=== PATIENT | male | born 1965 | race Hispanic/Latino ===

== ENCOUNTER 2016-11-06 11:31 | Emergency (ER) | payer SELFPAY ==
[2016-11-06] MEDS ORDERED: Ibuprofen 800 MG TAB ONE (13:11)
[2016-11-06] MEDS ORDERED: HYDROcodone/Acetaminophen 10/325 mg Tablet ONE (13:11)
--- NOTE | 2016-11-06 17:10 | RAD ---
RIGHT KNEE FOUR VIEWS 11/06/16 No fracture, dislocation, or joint space narrowing was seen. There is the beginnings of some minor b jarrell spurring. IMPRESSION: No acute findings. POS: HOME
--- NOTE | 2016-11-06 17:11 | RAD ---
RIGHT ANKLE THREE VIEWS: 11/06/16 There is substantial swelling, especially laterally. No acute fracture was demonstrated. There is so me bony spurring on the anterior aspect of the ankle joint. A calcaneal spur was noted. IMPRESSION: Soft tissue swelling without acute fracture. POS: HOME
== END 2016-11-06 13:15 | disposition home or self-care (01) ==
LOC: BURERS 11:31
DX: S93.431A Sprain of tibiofibular ligament of right ankle, initial encounter (principal); S83.421A Sprain of lateral collateral ligament of right knee, initial encounter; X50.1XXA Overexertion from prolonged static or awkward postures, initial encounter
CPT/HCPCS: 99283

== ENCOUNTER 2017-03-10 11:46 | Emergency (ER) | payer SELFPAY ==
[~2017-03-10 11:46] MED LIST: Iopamidol 370 76% 100 ML VIAL ONE
[2017-03-10] MEDS ORDERED: Ketorolac Tromethamine 30 MG/ML VIAL ONE (12:14)
[2017-03-10 12:16] LABS: #Basophils 0.1 thou/uL (0.0-0.2); #Monocytes 1.1 thou/uL (0.11-0.59); #Neutrophils 10.9 thou/uL (1.40-6.50); %Basophils 0.9 % (0.0-1.0); %Eosinophils 0.3 % (0.0-10.0); %Lymphocytes 13.9 % (21.0-51.0); %Neutrophils 76.8 % (42.0-75.0); Hemoglobin 15.8 g/dL (14.0-18.0); Mean Corpuscular HGB CONC 33.6 g/dL (32.0-36.0); Mean Corpuscular Hemoglobin 28.8 pg (27.0-31.0); Mean Corpuscular Volume 85.6 fl (80.0-94.0); Mean Platelet Volume 7.4 fL (7.4-10.4); Platelet Count 302 thou/uL (130-400); RBC Distribution Width 12.6 % (11.5-14.5); White Blood Cell (WBC) Count 14.1 thou/uL (4.8-10.8)
[2017-03-10 12:19] LABS: Bilirubin Negative (Negative); Blood, Urine Negative (Negative); Clarity Clear (Clear); Glucose, Urine (Dipstick) Negative (Negative); Leukocyte Negative (Negative); Nitrite Negative (Negative); Protein, Urine (Dipstick) Negative (Neg-Trace)
[2017-03-10 12:34] LABS: ALT (SGPT) 16 U/L (8-55); AST (SGOT) 12 U/L (5-34); Albumin 3.8 g/dL (3.5-5.0); Alkaline Phosphatase 74 U/L (40-150); Anion Gap 14 mmol/L (10-20); BUN (Urea Nitrogen) 14 mg/dL (8.9-20.6); Bilirubin, Total 0.7 mg/dL (0.2-1.2); Calc. Creatinine Clearance 0 mL/min (70-130); Carbon Dioxide 18 mmol/L (22-29); Chloride 111 mmol/L (98-107); Estimated GFR-MDRD Greater than 90; Globulin 3.8 g/dL (2.4-3.5); Glucose 114 mg/dL (70-105); Potassium 3.7 mmol/L (3.5-5.1); Protein, Total 7.6 g/dL (6.0-8.3); Sodium 139 mmol/L (136-145)
[2017-03-10] MEDS ORDERED: Ciprofloxacin Lactate/D5W 400 mg/200 ml Premix ONE (13:21)
[2017-03-10] MEDS ORDERED: traMADol HCl 50 MG TAB ONE (13:21)
--- NOTE | 2017-03-10 13:36 | CT ---
CT ABDOMEN AND PELVIS WITH CONTRAST: DATE: 03/10/17. COMPARISON: Comparison is made with the prior study of 07/30/16. FINDINGS: Axial slices were acquired after giving IV contrast. Oral contrast was withheld by request. Buckner l reconstructions were then done. The major finding on this study is some swelling of the sigmoid colon with a large amount of pericol onic stranding. The findings are most consistent with diverticulitis. I do not see a focal abscess . On slice 77 of the axial slices, there was a rounded fluid density behind the sigmoid colon, but on the coronal slices this appears to be fluid in bowel. No definite free air or free fluid was see n. Elsewhere, the abdomen and pelvis were unremarkable. The lung bases are clear. The liver, spleen, pancreas, adrenal glands, kidneys, gallbladder, and abdominal aorta were all unremarkable in appeara nce. The patient has a retroaortic left renal vein. Aside from the findings of diverticulitis in the pelvis/sigmoid region, the remainder of the bowel w as unremarkable in appearance. No free air was seen elsewhere. CT of the pelvis was remarkable for the inflammatory changes. No pelvic masses were seen. IMPRESSION: Findings most consistent with moderately severe diverticulitis with extensive pericolonic inflammato ry changes. No definite abscess seen. The location is similar to the July 2016 episode. Findings discussed with Dr. Oden at 1248 on 03/10/17. CODE CR POS: HOME
[2017-03-10] MEDS ORDERED: Magnesium Citrate 300 ML BOT ONE (14:05)
[2017-03-10] MEDS ORDERED: metroNIDAZOLE 500 MG/100 ML BAG ONE (14:24)
== END 2017-03-10 15:27 | disposition home or self-care (01) ==
LOC: BURERS 11:46
DX: K57.32 Diverticulitis of large intestine without perforation or abscess without bleeding (principal); K59.00 Constipation, unspecified
CPT/HCPCS: 74177; 80053; 81003; 83605; 85025; 96365; 96367; 96375; A4216; J0744; J1885; J2270

== ENCOUNTER 2018-01-28 10:29 | Emergency (ER) | payer SELFPAY ==
[2018-01-28] MEDS ORDERED: Ondansetron HCl/PF 4 MG/2 ML Vial ONE (10:42)
[2018-01-28] MEDS ORDERED: Fentanyl 100 MCG/2 ML VIAL ONE ×2 (10:42→11:58)
[2018-01-28 10:52] LABS: #Basophils 0.1 thou/uL (0.0-0.2); #Eosinphils 0.2 thou/uL (0.0-0.7); #Lymphocytes 1.9 thou/uL (1.20-3.40); #Monocytes 0.8 thou/uL (0.11-0.59); #Neutrophils 5.1 thou/uL (1.40-6.50); %Basophils 0.9 % (0.0-1.0); %Lymphocytes 23.6 % (21.0-51.0); %Monocytes 9.6 % (0.0-10.0); %Neutrophils 63.9 % (42.0-75.0); Hemoglobin 17.9 g/dL (14.0-18.0); Mean Corpuscular HGB CONC 34.3 g/dL (32.0-36.0); Mean Corpuscular Volume 81.6 fl (80.0-94.0); Mean Platelet Volume 7.1 fL (7.4-10.4); Platelet Count 270 thou/uL (130-400); RBC Distribution Width 12.6 % (11.5-14.5); Red Blood Cell (RBC) Count 6.39 mill/uL (4.70-6.10); White Blood Cell (WBC) Count 7.9 thou/uL (4.8-10.8)
[2018-01-28 11:10] LABS: ALT (SGPT) 37 U/L (8-55); AST (SGOT) 25 U/L (5-34); Albumin 4.4 g/dL (3.5-5.0); Alkaline Phosphatase 71 U/L (40-150); Anion Gap 12 mmol/L (10-20); BUN (Urea Nitrogen) 11 mg/dL (8.4-25.7); Bilirubin, Total 0.6 mg/dL (0.2-1.2); Calc. Creatinine Clearance 0 mL/min (70-130); Calcium 9.4 mg/dL (7.8-10.44); Carbon Dioxide 28 mmol/L (22-29); Chloride 106 mmol/L (98-107); Estimated GFR-MDRD Greater than 90; Globulin 3.3 g/dL (2.4-3.5); Glucose 110 mg/dL (70-105); Potassium 4.3 mmol/L (3.5-5.1); Protein, Total 7.7 g/dL (6.0-8.3); Sodium 142 mmol/L (136-145)
[2018-01-28] MEDS ORDERED: Piperacillin/Tazobactam 3.375 GM VIAL ONE (11:42)
[2018-01-28] MEDS ORDERED: Sodium Chloride 0.9% 100 ML ONE (11:42)
[2018-01-28 12:22] LABS: Clarity Clear (Clear)
[2018-01-28 12:23] LABS: Bilirubin Negative (Negative); Blood, Urine Negative (Negative); Glucose, Urine (Dipstick) Negative (Negative); Leukocyte Negative (Negative); Nitrite Negative (Negative); Protein, Urine (Dipstick) Negative (Neg-Trace); Specific Gravity, Urine 1.015 (1.005-1.030); pH, Urine 5.5 (5.0-9.0)
--- NOTE | 2018-01-28 18:39 | CT ---
CT ABDOMEN AND PELVIS WITH CONTRAST 01/28/[address] of the abdomen and pelvis was performed for evaluation of abdominal pain. Axial slices were acquired after giving IV contrast. Oral contrast was withheld by request. Comparison is made with the prior study dated 03/10/17. The lung bases are clear. The liver was unremarkable except for an area of contrast blush in the medi al part of the right lobe near the gallbladder. This is likely either an area of fatty sparring or a small hemangioma that is filled in with contrast. There may be some generalized fatty infiltration of the liver elsewhere. The spleen, pancreas, gallbladder, and abdominal aorta appeared normal. The rig ht adrenal gland appears normal. The left adrenal gland has a small 1.5 cm mass in it. I looked back at a 2012 CT from [facility] where this mass was measured at about 1.1 cm in size. Thus it h as changed in size only minimally over this six year period. The major finding on this study is a little bit of streaking around the sigmoid colon consistent with mild diverticulitis. No abscess or significant free fluid was seen. Diverticula are scattered elsewh ere throughout the colon. No free air was noted. CT of the pelvis was mainly remarkable for the diverticulitis. No pelvic masses were detected. IMPRESSION: 1. Findings consistent with mild sigmoid diverticulitis. 2. Small 1.5 cm left adrenal mass, compares with a size measurement of 1.1 cm six years ago, so more likely could be benign than not. POS: HOME
== END 2018-01-28 12:43 | disposition home or self-care (01) ==
LOC: BURERS 10:29
DX: K57.92 Diverticulitis of intestine, part unspecified, without perforation or abscess without bleeding (principal)
CPT/HCPCS: 74177; 80053; 81003; 85025; 94760; 96361; 96365; 96375; 96376; A4216; J2405; J2543; J3010; J7050

== ENCOUNTER 2018-03-02 08:27 | Emergency (ER) | payer SELFPAY ==
[2018-03-02] MEDS ORDERED: Ketorolac Tromethamine 30 MG/ML VIAL ONE (08:39)
[2018-03-02] MEDS ORDERED: Ondansetron HCl/PF 4 MG/2 ML Vial ONE (08:39)
[2018-03-02 08:46] LABS: #Basophils 0.1 thou/uL (0.0-0.2); #Eosinphils 0.2 thou/uL (0.0-0.7); #Lymphocytes 2.1 thou/uL (1.20-3.40); #Monocytes 0.8 thou/uL (0.11-0.59); #Neutrophils 5.4 thou/uL (1.40-6.50); %Basophils 1.1 % (0.0-1.0); %Eosinophils 2.3 % (0.0-10.0); %Lymphocytes 24.8 % (21.0-51.0); %Monocytes 9.6 % (0.0-10.0); %Neutrophils 62.3 % (42.0-75.0); Hemoglobin 16.7 g/dL (14.0-18.0); Mean Corpuscular HGB CONC 34.5 g/dL (32.0-36.0); Mean Corpuscular Volume 81.1 fL (78.0-98.0); Mean Platelet Volume 7.4 fL (7.4-10.4); Platelet Count 244 thou/uL (130-400); RBC Distribution Width 12.3 % (11.5-14.5); Red Blood Cell (RBC) Count 5.97 mill/uL (4.70-6.10); White Blood Cell (WBC) Count 8.6 thou/uL (4.8-10.8)
[2018-03-02 08:48] LABS: MDiff Complete? YES
[2018-03-02 08:49] LABS: Manual Diff?? YES
[2018-03-02] MEDS ORDERED: Iopamidol 370 76% 100 ML VIAL ONE (09:00)
[2018-03-02 09:03] LABS: ALT (SGPT) 29 U/L (8-55); AST (SGOT) 17 U/L (5-34); Alkaline Phosphatase 85 U/L (40-150); Anion Gap 14 mmol/L (10-20); BUN (Urea Nitrogen) 12 mg/dL (8.4-25.7); Bilirubin, Total 0.3 mg/dL (0.2-1.2); Calc. Creatinine Clearance 0 mL/min (70-130); Calcium 8.9 mg/dL (7.8-10.44); Carbon Dioxide 23 mmol/L (22-29); Chloride 109 mmol/L (98-107); Estimated GFR-MDRD Greater than 90; Glucose 114 mg/dL (70-105); Lipase 39 U/L (8-78); Potassium 4.5 mmol/L (3.5-5.1); Sodium 141 mmol/L (136-145)
[2018-03-02 09:04] LABS: CKMB 1.1 ng/mL (0-6.6); Troponin I Less than 0.010 ng/mL (< 0.028)
[2018-03-02 09:40] LABS: Clarity Clear (Clear); Specific Gravity, Urine 1.015 (1.005-1.030); pH, Urine 5.5 (5.0-9.0)
[2018-03-02 09:41] LABS: Bilirubin Negative (Negative); Blood, Urine Negative (Negative); Glucose, Urine (Dipstick) Negative (Negative); Leukocyte Negative (Negative); Nitrite Negative (Negative); Protein, Urine (Dipstick) Negative (Neg-Trace); Urobilinogen 0.2 mg/dL (0.2-1.0)
[2018-03-02] MEDS ORDERED: Morphine 4 MG/ML Carpuject ONE (10:02)
--- NOTE | 2018-03-02 22:14 | CT ---
PRELIMINARY REPORT/[facility]/EMERGENTY AFTER-HOURS PROCEDURE CT Abdomen and Pelvis With Intravenous Contrast EXAM DATE/TIME: 03/02/2018 9:19 AM CLINICAL HISTORY: 52 years old, male; Pain; Abdominal pain; Other: Ruq; Patient HX: Ruq abd. Pain/n-v TECHNIQUE: Axial computed tomography images of the abdomen and pelvis with intravenous contrast. All CT scans at this facility use at least one of these dose optimization techniques: automated exposure control; mA and/or kV adjustment per patient size (includes targeted exams where dose is matched to clinical ind ication); or iterative reconstruction. Coronal and sagittal reformatted images were created and reviewed. CONTRAST: 95 ml of ISOVUE administered intravenously. COMPARISON: No relevant prior studies available. FINDINGS: Lower thorax: No acute findings. ABDOMEN: Liver: Normal. No mass. Gallbladder and bile ducts: Normal. No calcified stones. No ductal dilation. Pancreas: Normal. No ductal dilation. Spleen: Normal. No splenomegaly. Adrenals: There is an indeterminate 13 mm left adrenal nodule that demonstrates density 24 Hounsfield units. Kidneys and ureters: There are nonobstructing left renal calcifications. The kidneys are normal. Ther e is nonobstructing left nephrolithiasis. Stomach and bowel: There is a moderate burden of descending and sigmoid colonic diverticulosis withou t evidence of acute inflammation. There is segmental thickening of the sigmoid colon which may be spa sm or fibrotic change. There is suggestion of a colon to colon fistula involving the mid and distal s igmoid segments on axial image 79 of series 2. Appendix: The appendix is surgically absent. PELVIS: Bladder: Unremarkable as visualized. Reproductive: The prostate gland demonstrates nonspecific parenchymal calcification. ABDOMEN and PELVIS: Intraperitoneal space: Normal. No free air. No significant fluid collection. Bones/joints: No acute fracture. No dislocation. Soft tissues: Unremarkable. Vasculature: Normal. No abdominal aortic aneurysm. Lymph nodes: Normal. No enlarged lymph nodes. IMPRESSION: 1. There is an indeterminate 13 mm left adrenal nodule that demonstrates density 24 Hounsfield units. Recommend follow-up abdominal CT or MR in 12 months. Alternatively, if there is a history of maligna ncy, consider further evaluation with PET, unenhanced abdominal CT or MR. 2. There is no acute intra-abdominal process. 3. There is a moderate burden of descending and sigmoid colonic diverticulosis without evidence of ac otoe-[place] inflammation. There is segmental thickening of the sigmoid colon which may be spasm or fibrotic c hange. There is suggestion of a colon to colon fistula involving the mid and distal sigmoid segments on axial image 79 of series 2. 4. There is nonobstructing left nephrolithiasis. Thank you for allowing us to participate in the care of your patient. Dictated and Authenticated by: Kerwin Miller DO 03/02/2018 10:53 AM Central Time ([place] & [place]) CT ABDOMEN AND PELVIS WITH CONTRAST: Date: 03-02-18 Technique: Spiral CT of the abdomen and pelvis was performed for evaluation of right upper quadrant p ain with nausea and vomiting. Axial slices were acquired then coronal and sagittal reconstructions we re done. FINDINGS: The lung bases are clear. There is a minor amount of subsegmental atelectasis in the lung bases. The liver, spleen, pancreas, gallbladder, and abdominal aorta all showed no acute findings. A few nonobst ructing calculi are seen in the left kidney. There is a 1.3 cm nodule in the left adrenal gland of in determinate significance. The average CT values are in the low 20s. This is indeterminate for an shalom rodrigo without further scans. One should probably consider follow up within 12 months unless there are o ther diseases present that make further work up sooner necessary. There is some mild thickening of the descending colon with no pericolonic stranding. Diverticulosis i s present throughout but there are no convincing signs of diverticulitis. No mesenteric adenopathy is seen. On one of the slices through the pelvis there is a question of a fistula between the mid and d istal sigmoid colon but the finding is indefinite. There are no inflammatory changes around this area . IMPRESSION: 1. No findings to explain the patient's pain. 2. Nonobstructing left renal calculi. 3. Diverticulosis. Equivocal mild thickening of the descending colon without inflammatory stranding a round it. 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 Report in agreement with preliminary report by [facility]. POS: HOME
== END 2018-03-02 11:17 | disposition short-term general hospital (02) ==
LOC: BURERS 08:27
DX: K63.2 Fistula of intestine (principal); F17.210 Nicotine dependence, cigarettes, uncomplicated; Z79.899 Other long term (current) drug therapy
CPT/HCPCS: 74177; 80053; 81003; 82553; 83690; 84484; 85025; 93005; 96374; 96375; A4216; J1885; J2270; J2405

== ENCOUNTER 2018-03-13 07:50 | Emergency (ER) | payer SELFPAY | END 2018-03-13 08:28 | disposition home or self-care (01) | LOC: BURERS 07:50 | DX: T81.31XA Disruption of external operation (surgical) wound, not elsewhere classified, initial encounter (principal) | CPT/HCPCS: 12020 ==

== ENCOUNTER 2019-05-14 15:21 | Emergency (ER) | payer OTHER, SELFPAY ==
[2019-05-14] MEDS ORDERED: Ketorolac Tromethamine 60 MG/2 ML VIAL ONE (15:30)
[2019-05-14] MEDS ORDERED: HYDROcodone/Acetaminophen 5/325 mg Tablet ONE (15:30)
--- NOTE | 2019-05-14 17:56 | RAD ---
RIGHT KNEE FOUR VIEWS: 05/14/19 A sizable joint effusion is present, but I do not appreciate a fracture. The joint surfaces seem smoo th and the joint space is normal in with. There is some minor irregularity along the articular surfac es of the patella. IMPRESSION: Joint effusion without obvious fracture. The possibility of an internal derangement is raised. MRI wo uld be more sensitive at detecting this, as well as ruling out any subtle bony injuries. Code T POS: HOME
== END 2019-05-14 16:11 | disposition home or self-care (01) ==
LOC: BURERS 15:21
DX: M25.561 Pain in right knee (principal); X50.1XXA Overexertion from prolonged static or awkward postures, initial encounter
CPT/HCPCS: 96372; J1885

== ENCOUNTER 2020-04-07 18:58 | Emergency (ER) | payer OTHER ==
[2020-04-07 19:41] LABS: Hemoglobin 15.8 g/dL (14.0-18.0); Mean Corpuscular HGB CONC 29.9 g/dL (32.0-36.0); Mean Corpuscular Hemoglobin 27.4 pg (27.0-31.0); Mean Corpuscular Volume 91.6 fL (78.0-98.0); Mean Platelet Volume 7.6 fL (7.4-10.4); Platelet Count 186 thou/uL (130-400); Red Blood Cell (RBC) Count 5.78 mill/uL (4.70-6.10); White Blood Cell (WBC) Count 6.9 thou/uL (4.8-10.8)
[2020-04-07] MEDS ORDERED: Meclizine HCl 25 MG TAB ONE (19:41)
[2020-04-07 19:56] LABS: ALT (SGPT) 28 U/L (8-55); AST (SGOT) 20 U/L (5-34); Albumin 4.1 g/dL (3.5-5.0); Alkaline Phosphatase 79 U/L (40-110); Anion Gap 15 mmol/L (10-20); BUN (Urea Nitrogen) 16 mg/dL (8.4-25.7); Bilirubin, Total 0.2 mg/dL (0.2-1.2); CK (CPK) 61 U/L (30-200); Calc. Creatinine Clearance 0 mL/min (70-130); Calcium 8.3 mg/dL (7.8-10.44); Carbon Dioxide 21 mmol/L (22-29); Chloride 108 mmol/L (98-107); Estimated GFR-MDRD Greater than 90; Globulin 2.8 g/dL (2.4-3.5); Glucose 98 mg/dL (70-105); Potassium 3.8 mmol/L (3.5-5.1); Protein, Total 6.9 g/dL (6.0-8.3); Sodium 140 mmol/L (136-145)
[2020-04-07 19:57] LABS: #Basophils 0.1 thou/uL (0.0-0.2); #Eosinphils 0.2 thou/uL (0.0-0.7); #Lymphocytes 1.5 thou/uL (1.20-3.40); #Monocytes 0.7 thou/uL (0.11-0.59); #Neutrophils 4.5 thou/uL (1.40-6.50); %Basophils 1.7 % (0.0-1.0); %Eosinophils 2.3 % (0.0-10.0); %Lymphocytes 21.2 % (21.0-51.0); %Monocytes 10.1 % (0.0-10.0); %Neutrophils 64.7 % (42.0-75.0)
[2020-04-07 19:58] LABS: Hypochromia SLIGHT = 6-15 cells (100X) (0-5/hpf); MDiff Complete? YES
--- NOTE | 2020-04-07 21:20 | CT ---
CT OF THE BRAIN WITHOUT CONTRAST: 04/07/[address] shows normal sized ventricles with no shift. No intracranial bleeding, mass or sign of acute stroke was found. The skull appears intact. The visible paranasal sinuses are clear. The ma stoid air cells are under aerated bilaterally. There probably has been old trauma to the nasal bones. IMPRESSION: No acute intracranial findings. Preliminary report called to Me[facility] in ER at 2000 on 04/07/2020. POS: HOME
--- NOTE | 2020-04-07 21:21 | RAD ---
PORTABLE CHEST: 04/07/20 An AP portable film at 1935 is compared with a 01/08/2020 study. The heart is normal in size and the lungs are clear. No infiltrate or effusion was seen. There is no vascular congestion or edema. IMPRESSION: No acute thoracic findings. POS: HOME
[2020-04-08 18:22] LABS: SARS-CoV-2 MS2 Positive; SARS-CoV-2 N Gene Positive; SARS-CoV-2 S Gene Positive; SARS-CoV-2 by NAA DETECTED (NotDetected); SARS-CoV-2 orf1ab Positive
== END 2020-04-07 20:29 | disposition home or self-care (01) ==
LOC: BURERS 18:58
DX: U07.1 COVID-19 (principal); R42 Dizziness and giddiness
CPT/HCPCS: 70450; 71045; 80053; 82550; 84484; 85025; 87635; 93005; 96360; U0003

== ENCOUNTER 2021-02-13 11:38 | Outpatient (CLI) | payer OTHER ==
[2021-02-15 11:00] LABS: ANA Symphony (Qualitative) Negative (Negative); ANA Symphony (Quantitative) 0.1 Ratio (< 0.7 Negative); dsDNA IgG Antibody 0.8 IU/mL (<10 Negative)
== END 2021-02-13 11:39 | disposition home or self-care (01) ==
LOC: BURRAD 11:38
PROVIDERS: ATTEND Family Medicine
DX: M25.50 Pain in unspecified joint (principal); R25.2 Cramp and spasm; G62.9 Polyneuropathy, unspecified; R25.8 Other abnormal involuntary movements
CPT/HCPCS: 36415; 86038; 86225

== ENCOUNTER 2024-07-18 10:44 | Emergency (ER) | payer SELFPAY | END 2024-07-18 11:02 | disposition home or self-care (01) | LOC: BURERS 10:44 | DX: S43.402A Unspecified sprain of left shoulder joint, initial encounter (principal); X58.XXXA Exposure to other specified factors, initial encounter | CPT/HCPCS: 99283 ==

== ENCOUNTER 2025-06-20 18:14 | Emergency (ER) | payer OTHER, SELFPAY ==
[2025-06-20 18:48] LABS: Glucose, Urine (Dipstick) Negative (Negative); Leukocyte Negative (Negative); Protein, Urine (Dipstick) Trace mg/dL (Neg-Trace); Specific Gravity, Urine 1.025 (1.005-1.030)
[2025-06-20] MEDS ORDERED: Ketorolac Tromethamine 30 MG (1 mL) VIAL ONE (18:49)
[2025-06-20 18:52] LABS: #Basophils 0.2 thou/uL (0.0-0.2); #Eosinophils 0.1 thou/uL (0.0-0.7); #Lymphocytes 1.6 thou/uL (1.20-3.40); #Monocytes 0.7 thou/uL (0.11-0.59); #Neutrophils 5.6 thou/uL (1.40-6.50); %Basophils 2.0 % (0.0-1.0); %Eosinophils 1.6 % (0.0-10.0); %Lymphocytes 19.2 % (21.0-51.0); %Monocytes 8.4 % (0.0-10.0); %Neutrophils 68.8 % (42.0-75.0); Hematocrit 49.9 % (42.0-52.0); Hemoglobin 17.0 g/dL (14.0-18.0); Mean Corpuscular Hemoglobin 30.2 pg (27.0-31.0); Mean Corpuscular Volume 88.4 fl (78.0-98.0); Platelet Count 276 10x3/uL (130-400); Red Blood Cell (RBC) Count 5.65 mill/uL (4.70-6.10); White Blood Cell (WBC) Count 8.1 10x3/uL (4.8-10.8)
[2025-06-20 18:53] LABS: Bacteria/HPF None Seen HPF (None Seen); CAUTI Indications for Culture Pelvic or flank pain; WBC/HPF None Seen HPF (0-3)
[2025-06-20 18:54] LABS: Urine Culture Reflex No No
[2025-06-20 19:04] LABS: ALT (SGPT) 18 U/L (Less than 45); AST (SGOT) 20 U/L (11-34); Albumin 4.0 g/dL (3.1-4.5); Alkaline Phosphatase 62 U/L (40-110); Anion Gap 13 mmol/L (10-20); BUN (Urea Nitrogen) 15 mg/dL (8.4-25.7); Bilirubin, Total 0.4 mg/dL (0.3-1.2); Calc. Creatinine Clearance 0 mL/min (70-130); Calcium 8.6 mg/dL (7.8-10.44); Carbon Dioxide 19 mmol/L (22-29); Chloride 112 mmol/L (98-107); Globulin 2.9 g/dL (2.4-3.5); Glucose 108 mg/dL (70-105); Potassium 4.2 mmol/L (3.5-5.1); Sodium 140 mmol/L (136-145)
== END 2025-06-20 20:34 | disposition home or self-care (01) ==
LOC: BURERS 18:14
DX: N20.0 Calculus of kidney (principal)
CPT/HCPCS: 74176; 80053; 81001; 85025; 96374; J1885